=== PATIENT | male | born 1985 | race Two or more races ===

== ENCOUNTER 2022-07-18 21:52 | Emergency (ER) | payer MEDICAID, OTHER ==
[~2022-07-18] VITALS: Ht 182.9 cm; Wt 90.7 kg
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
[2022-07-18] MEDS ORDERED: IBUPROFEN 400 MG TABLET ONE (22:21)
[2022-07-18] MEDS ORDERED: IBUPROFEN 400 MG TABLET PO ONE (22:30)
--- NOTE | 2022-07-19 00:19 | NUR ---
ORTHO ANODE BUILDER WAS PAGED
[2022-07-19] MEDS ORDERED: ONDANSETRON HCL/PF 4 MG/2 ML VIAL ONE (00:50)
[2022-07-19] MEDS ORDERED: MORPHINE SULFATE INJ 4 MG/ML DISP.SYRIN ONE (00:51)
--- NOTE | 2022-07-19 00:59 | NUR ---
COVID ANTIGEN SWAB COLLECTED AND SENT TO LAB
--- NOTE | 2022-07-19 00:59 | NUR ---
PAYROLL EXAMINER AT PT'S BEDSIDE
[2022-07-19] MEDS ORDERED: MORPHINE SULFATE INJ 2 MG/ML DISP.SYRIN IV ONE (01:00)
[2022-07-19] MEDS ORDERED: ONDANSETRON HCL/PF 4 MG/2 ML VIAL IV ONE (01:00)
--- NOTE | 2022-07-19 01:27 | NUR ---
DR MONROE ON THE PHONE WITH DR KIM, ORTHO
[2022-07-19] MEDS ORDERED: HYDR-3972 PO (01:29)
--- NOTE | 2022-07-19 01:42 | NUR ---
LEFT KNEE IMMOBILIZER SPLINT APPLIED
[2022-07-19 01:47] LABS: BASOPHILS % (AUTO) 0.2 % (0.0-2.0); EOSINOPHILS % (AUTO) 1.4 % (0.0-6.0); HEMATOCRIT 42 % (39-51); LYMPHOCYTES # (AUTO) 1.4 K/uL (0.8-4.8); LYMPHOCYTES % (AUTO) 16.2 % (20.0-44.0); MEAN CORPUSCULAR HGB CONC 34 g/dl (31.0-36.0); MEAN CORPUSCULAR VOLUME 89 fL (80-96); MONOCYTES # (AUTO) 0.4 K/uL (0.1-1.30); MONOCYTES % (AUTO) 4.7 % (2.0-12.0); NEUTROPHILS # (AUTO) 6.6 K/uL (1.8-8.9); NEUTROPHILS % (AUTO) 77.5 % (43.0-81.0); PLATELET COUNT (AUTO) 277 K/uL (150-450); RED BLOOD CELL COUNT(AUTO) 4.69 MIL/uL (4.5-6.0); WHITE BLOOD COUNT (AUTO) 8.6 K/uL (4.3-11.0)
--- NOTE | 2022-07-19 01:51 | NUR ---
EMT AT BED SIDE TO APPLY SPLINT
[2022-07-19 02:00] LABS: CREATININE 1.1 mg/dL (0.6-1.3)
--- NOTE | 2022-07-19 02:10 | NUR ---
CALLED [facility] FOR TRANSPORTATION ETA 5-10MIN
--- NOTE | 2022-07-19 02:32 | NUR ---
PT DC [facility] VIA [facility]. Patient discharged to home in stable condition. Written and verbal after care instructions given. Patient verbalizes understanding of instruction.
[2022-07-19 02:34] VITALS: BP 135/65
== END 2022-07-19 02:47 | disposition home or self-care (01) ==
LOC: ER 21:54
DX: S82.145A Nondisplaced bicondylar fracture of left tibia, initial encounter for closed fracture (principal); S82.402A Unspecified fracture of shaft of left fibula, initial encounter for closed fracture; Z60.2 Problems related to living alone; Z79.899 Other long term (current) drug therapy; V00.131A Fall from skateboard, initial encounter; Y93.51 Activity, roller skating (inline) and skateboarding; Y92.89 Other specified places as the place of occurrence of the external cause; Y99.8 Other external cause status
CPT/HCPCS: 99285; 29505; 73700; 96374; 71045; 96375; 87426; 93005; 85025; 80048; 36415; 85730; J2270; J2405; C9803